=== PATIENT | female | born 1950 | race Asian ===

== ENCOUNTER 2017-08-30 14:46 | Inpatient (IN) | payer OTHER ==
[~2017-08-30] VITALS: Ht 157.5 cm; Wt 61.7 kg
[~2017-08-30 14:46] MED LIST: ANORO ELLIPTA1 EACH IH; ASPIR-LOW81 MG PO; CREON 241 CAPSULE PO; FISH OIL 1,0001 EAC7 PO; LEVOFLOXACIN750 MG PO; MULTIVITAMIN1 EAC2 PO; ST. JOSEPH ASPI81 MG PO; TUMS500 MG PO; TYLENOL EXTRA500 MG PO; VITAMIN D-32000 UNI2 PO; VITAMIN E100 UNIT PO; VITAMIN E400 UNIT PO
[2017-08-30 15:47] LABS: HEMATOCRIT 41.4 % (36.0-46.0); HEMOGLOBIN 14.4 G/DL (11.9-15.5); MCH 29.8 PG (29.0-34.0); MCHC 34.8 G/DL (30.0-36.0); MCV 85.5 FL (83-99); PLATELET COUNT 271 K/uL (156-360); RBC DIS.WIDTH-CV 13.5 % (11.8-14.6); RED BLOOD COUNT 4.84 M/uL (3.80-5.20)
[2017-08-30 15:54] LABS: ALBUMIN 4.1 g/dL (3.2-4.8); CHLORIDE 103 mEq/L (99-109); POTASSIUM 3.7 mEq/L (3.7-5.4); SODIUM 135 mEq/L (136-147)
[2017-08-30 15:57] LABS: GLUCOSE 125 mg/dL (70-99); TOTAL PROTEIN 7.3 g/dL (6.4-8.3)
[2017-08-30 15:59] LABS: TOTAL BILIRUBIN 1.3 mg/dL (0.0-1.0)
[2017-08-30 16:00] LABS: ALKALINE PHOSPHATASE 71 IU/L (3-129); CREATININE 0.9 mg/dL (0.6-1.3); GFR ESTIMATE (CALCULATED) > 59 mL/min/
[2017-08-30 16:01] LABS: UREA NITROGEN (BUN) 15 mg/dL (9-23)
[2017-08-30 16:02] LABS: AST (GOT) 26 IU/L (2-34)
[2017-08-30 16:03] LABS: ALT (GPT) 29 IU/L (3-49)
[2017-08-30] MEDS ORDERED: FISH OIL 1,2001 EAC4 PO (18:15)
[2017-08-30] MEDS ORDERED: VITAMIN D31000 UNI2 PO (18:17)
[2017-08-30] MEDS ORDERED: ACAI500 MG PO (18:18)
[2017-08-30 21:23] VITALS: BP 121/69
[2017-08-31 00:15] VITALS: BP 123/71
[2017-08-31 01:24] LABS: APPEARANCE CLEAR ((CLEAR)); BILIRUBIN NEGATIVE; BLOOD NEGATIVE; COLOR YELLOW ((YELLOW)); GLUCOSE (STRIP) NEGATIVE; KETONES 20; LEUKOCYTES TRACE; NITRITE NEGATIVE; PROTEIN (STRIP) NEGATIVE; SPECIFIC GRAVITY 1.024 (1.000-1.030); UROBILINOGEN 0.2 MG/DL (0.2-1.0)
[2017-08-31 01:31] LABS: BACTERIA NONE SEEN /HPF; EPITHELIAL CELLS RARE /HPF; MUCUS NONE SEEN /LPF; RED BLOOD CELLS NONE SEEN /HPF (0-5)
[2017-08-31 03:58] VITALS: BP 102/55
[2017-08-31 07:46] VITALS: BP 93/52
[2017-08-31 11:30] VITALS: BP 93/52
[2017-08-31 15:46] VITALS: BP 138/66
[2017-09-01] VITALS: BP 123/78
[2017-09-01 07:09] LABS: BASOPHIL (%) 0.4 % (0-1); BASOPHIL COUNT 0.1 K/uL (0-0.1); EOSINOPHIL (%) 0.6 % (0-5); EOSINOPHIL COUNT 0.1 K/uL (0-0.3); HEMATOCRIT 39.4 % (36.0-46.0); HEMOGLOBIN 13.3 G/DL (11.9-15.5); IMMATURE GRANULOCYTE (%) 0.4 % (0.0-0.7); LYMPHOCYTE (%) 13.1 % (15-42); LYMPHOCYTE COUNT 1.8 K/uL (1.0-2.8); MCH 29.3 PG (29.0-34.0); MCHC 33.8 G/DL (30.0-36.0); MCV 86.8 FL (83-99); MONOCYTE (%) 7.2 % (3-12); NEUTROPHIL (%) 78.3 % (45-76); NEUTROPHIL COUNT 10.7 K/uL (1.8-6.4); PLATELET COUNT 228 K/uL (156-360); RBC DIS.WIDTH-CV 13.5 % (11.8-14.6); RBC DIS.WIDTH-SD 42.7 % (39-53); RED BLOOD COUNT 4.54 M/uL (3.80-5.20); WHITE BLOOD COUNT 13.7 K/uL (4.1-10.2)
[2017-09-01 07:30] LABS: CHLORIDE 108 MEQ/L (99-109); CREATININE 0.6 MG/DL (0.6-1.3); GFR ESTIMATE (CALCULATED) > 59 mL/min/; POTASSIUM 3.8 MEQ/L (3.7-5.4); SODIUM 140 MEQ/L (136-147); UREA NITROGEN (BUN) 9 mg/dL (9-23)
[2017-09-01 07:32] LABS: GLUCOSE 76 mg/dL (70-99)
[2017-09-01 08:05] VITALS: BP 128/72
[2017-09-01 10:50] LABS: HEMOGLOBIN A1c (GLYCOHEMOGLOB) 5.8 % (Below 5.7)
[2017-09-01 15:51] VITALS: BP 142/94
[2017-09-02 00:22] VITALS: BP 131/95
[2017-09-02 07:47] VITALS: BP 119/76
[2017-09-02] MEDS ORDERED: CIPRO500 MG PO (08:15)
[2017-09-02] MEDS ORDERED: FLAGYL500 MG PO (08:16)
== END 2017-09-02 10:19 | disposition home or self-care (01) | DRG 392 ==
LOC: EME 14:46 → EDOF 17:50 → 2EASTP 17:50 → ENRESERV 18:01 → 2EASTP 20:59 → ENPENDDIS 09-02 → 2EASTP 09-02 10:19
PROVIDERS: Family Medicine; Physician Assistant
DX: K52.9 Noninfective gastroenteritis and colitis, unspecified (principal); K56.7 Ileus, unspecified; J98.11 Atelectasis; E11.65 Type 2 diabetes mellitus with hyperglycemia; E78.5 Hyperlipidemia, unspecified; M81.0 Age-related osteoporosis without current pathological fracture; M54.5 Low back pain; Z85.038 Personal history of other malignant neoplasm of large intestine; Z85.07 Personal history of malignant neoplasm of pancreas; Z87.891 Personal history of nicotine dependence; Z90.411 Acquired partial absence of pancreas; Z92.21 Personal history of antineoplastic chemotherapy
CPT/HCPCS: 71046; 71250; 74177; 80048; 80053; 81003; 83036; 85025; 85027; 87086; 87502; 94667; 94668; 99202; 99281; 99285; C9113; J0744; J2543; J2765; J7040; J7050; S0030